=== PATIENT | male | born 1975 | race Caucasian/White ===

== ENCOUNTER 2016-09-05 01:51 | Emergency (ER) | payer OTHER ==
[~2016-09-05 01:51] MED LIST: IBUPROFEN PO; LISINOPRIL10 MG PO; NEURONTIN300 MG PO; NEURONTIN600 MG PO; NORCO 10-325 TA1 TAB PO; OXYCODONE HCL30 MG PO
[2016-09-05 03:56] LABS: BASOPHIL% 0.5 % (0-2.5); EOSINOPHIL# 0.2 X10e3 (0-0.7); EOSINOPHIL% 2.6 % (0.0-7.0); HEMATOCRIT 41.5 % (38.0-50.0); HEMOGLOBIN 13.9 gm/dL (13.0-16.0); LYMPHOCYTE# 1.4 X10e3 (1.0-3.5); LYMPHOCYTE% 19.6 % (17.0-45.0); MEAN CELL VOLUME 92.4 FL (83-96); MEAN CORPUSCULAR HEMOGLOBIN 30.9 PG (28-34); MEAN CORPUSCULAR HGB CONC 33.5 g/dL (30-36); MEAN PLATELET VOLUME 11.8 FL (6.5-11.5); MONOCYTE# 0.6 X10e3 (0-1.0); MONOCYTE% 9.1 % (3.0-12.0); NEUTROPHIL# 4.8 X10e3 (1.5-7.1); NEUTROPHIL% 68.2 % (40-75); RED BLOOD COUNT 4.49 X10e (3.90-5.60); RED CELL DISTRIBUTION WIDTH 13.9 % (11.0-15.5); WHITE BLOOD COUNT 7.1 X10e3 (4.0-10.5)
[2016-09-05 04:12] LABS: BILIRUBIN, DIRECT 0.1 mg/dL (0.0-0.2); BILIRUBIN,INDIRECT 0.8 mg/dL (0.0-0.9); BILIRUBIN,TOTAL 0.9 mg/dL (0.2-2.0); CREATININE SERUM 0.6 mg/dL (0.6-1.4); GLOM FILT RATE Estimated 125.8 mL/min (>60); POTASSIUM 3.5 mmol/L (3.5-5.1)
[2016-09-05 04:23] LABS: DIFF IND NO; PLATELET COUNT 107 X10e3 (140-420)
[2016-09-05 05:16] LABS: URINE APPEARANCE CLEAR; URINE BILIRUBIN NEG (NEG); URINE BLOOD NEG (NEG); URINE COLOR YELLOW; URINE GLUCOSE NEG (NEG); URINE KETONE NEG (NEG); URINE LEUKOCYTE ESTERASE NEG (NEG); URINE NITRATE NEG (NEG); URINE PROTEIN NEG (NEG); URINE SPECIFIC GRAVITY 1.013 (1.003-1.035)
[2016-09-05 05:21] LABS: CULTURE INDICATED? NO
[2016-09-05 05:27] LABS: AMPHETAMINE POS (NEG); BARBITURATES NEG (NEG); BENZODIAZEPINES NEG (NEG); COCAINE NEG (NEG); MARIJUANA POS (NEG); OPIATES POS (NEG); TRICYCLIC ANTIDEPRESSANTS NEG (NEG); U METHADONE NEG (NEG)
== END 2016-09-05 05:30 | disposition home or self-care (01) ==
LOC: CED 01:51
PROVIDERS: Nurse Practitioner Family
DX: L03.313 Cellulitis of chest wall (principal); I10 Essential (primary) hypertension; J44.9 Chronic obstructive pulmonary disease, unspecified; Z79.899 Other long term (current) drug therapy
CPT/HCPCS: 36415; 80048; 80076; 80307; 81003; 82550; 85025; 96360; 99284

== ENCOUNTER 2016-10-17 19:32 | Emergency (ER) | payer OTHER ==
[~2016-10-17] VITALS: Ht 193 cm; Wt 86.2 kg
[2016-10-17 20:21] LABS: URINE SOURCE CLEAN CATCH
[2016-10-17 20:26] LABS: URINE APPEARANCE CLOUDY; URINE BLOOD 2+ (NEG); URINE COLOR DK YELLOW; URINE GLUCOSE NEG (NEG); URINE KETONE NEG (NEG); URINE LEUKOCYTE ESTERASE 2+ (NEG); URINE NITRATE NEG (NEG); URINE PH 5.5 (5-8); URINE PROTEIN 1+ (NEG); URINE SPECIFIC GRAVITY 1.032 (1.003-1.035)
[2016-10-17 20:29] LABS: CULTURE INDICATED? YES; URBCS1 AUWI 25-50 /[HPF] (0-2); URINE BACTERIA AUWI NEG (NEGATIVE); URINE SQUAMOUS EPITHELIAL CELL NONE SEEN /[HPF]; UWBCS1 AUWI 200-300 (0-5)
[2016-10-17 20:31] LABS: URINE BILIRUBIN NEG (NEG)
[2016-10-22 15:24] LABS: CHLAMYDIA TRACH Not Detected (Not Detected); N GONOR Detected (Not Detected)
== END 2016-10-17 21:40 | disposition home or self-care (01) ==
LOC: CED 19:32 → CFTX 19:32 → CED 20:31 → CFTX 20:31
PROVIDERS: Nurse Practitioner Family
DX: N34.2 Other urethritis (principal); F17.210 Nicotine dependence, cigarettes, uncomplicated; Z79.899 Other long term (current) drug therapy
CPT/HCPCS: 81003; 87086; 87491; 87591; 96372; 99283; J0696

== ENCOUNTER 2016-10-26 19:59 | Emergency (ER) | payer OTHER ==
[~2016-10-26] VITALS: Ht 190.5 cm; Wt 86.2 kg
== END 2016-10-26 20:39 | disposition home or self-care (01) ==
LOC: CED 19:59
DX: H10.33 Unspecified acute conjunctivitis, bilateral (principal); F17.200 Nicotine dependence, unspecified, uncomplicated
CPT/HCPCS: 99282